=== PATIENT | female | born 1975 | race Caucasian/White ===

== ENCOUNTER → 2016-06-11 | Outpatient (CLI) | payer BC | END | disposition home or self-care (01) | LOC: RAD.S 10:45 | DX: R10.9 Unspecified abdominal pain (principal); K82.0 Obstruction of gallbladder ==

== ENCOUNTER → 2016-06-16 | Outpatient (CLI) | payer BC | END | disposition home or self-care (01) | LOC: RAD.S 07:55 | DX: R10.10 Upper abdominal pain, unspecified (principal) ==

== ENCOUNTER → 2016-08-17 | Outpatient (CLI) | payer BC | END | disposition home or self-care (01) | LOC: RAD.S 09:09 | DX: Z12.31 Encounter for screening mammogram for malignant neoplasm of breast (principal) ==